=== PATIENT | female | born 2000 | race Two or more races ===

== ENCOUNTER 2018-01-14 10:35 | Day surgery (SDC) | payer MEDICAID ==
--- NOTE | 2018-01-14 11:33 | EDPHY ---
H & P Time Seen by Provider: 01/14/18 11:16 HPI/ROS: CHIEF COMPLAINT: Pelvic pain HISTORY OF PRESENT ILLNESS: Patient complains of lower abdominal and pelvic pain that started yesterday morning. It is constant duration. It was at 1st mild but now moderate to severe. Unable to perform her exercise activities today. 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 It is worse with any kind of movement. Minimal improvement rest. It is primarily located in the mid abdomen into the pelvis and somewhat on the right side. Some nausea but no vomiting. No fever chills. No urinary complaints. No vaginal pain, discharge or bleeding. No trauma or injury. No previous abdominal pathology. She does have some concern for IUD as she talk to her crap game box person about this. Both the crap game box person and the lion trainer at [employer] [facility] [employer] recommended she present to the emergency department. No other associated complaints or modifying factors. REVIEW OF SYSTEMS: Ten systems reviewed and are negative unless otherwise noted in the HPI PCP: [facility] SPECIALISTS: [facility] PAST MEDICAL HISTORY: Asthma PAST SURGICAL HISTORY: No recent surgeries. IUD placed greater than 1 year ago SOCIAL HISTORY: Nonsmoker. [employer] student. Student athlete originally from [place] FAMILY HISTORY: Volleyball noncontributory EXAMINATION General Appearance: Alert, no distress Head: normocephalic, atraumatic Eyes: Pupils equal and round, no conjunctival pallor or injection ENT, Mouth: Mucous membranes moist Neck: Normal inspection, supple, non-tender. Respiratory: Lungs are clear to auscultation No wheezing, rhonchi or crackles Cardiovascular: Regular rate and rhythm. No murmur Gastrointestinal: Abdomen is soft and nondistended. There is mild tenderness in the lower quadrants. Negative McBurney. Negative obturator. No guarding. No rigidity. No tympany. Back: non-tender, no bony abnormalities Neurological: A&O, nonfocal, normal gait Skin: Warm and dry, no rash Extremities: Nontender, no pedal edema Psychiatric: Mood and affect normal DIFFERENTIAL DIAGNOSES: Including but not limited to ovarian cyst, ovarian torsion, IUD irritation, IUD migration, appendicitis, colitis, diverticulitis, ureteral stone, urethritis, ureteritis MDM: 11:20 a.m. Abdominal pelvic pain with patient concern for cyst versus is migration of her IUD. Her abdominal exam is benign with some pain in the lower quadrants. She has no rigidity, tympany or peritonitis. Vital signs are within normal limits. I have ordered ultrasound the appendix and pelvis to rule out torsion and to evaluate for IUD placement. I have ordered laboratory studies. She is in no acute distress at this time. 12:30 p.m. CBC shows mild leukocytosis. Chemistries unremarkable with exception of a positive HCG. I have ordered a quantitative HCG. I have notified the patient of this and discussed the possibilities of a false-positive that we are re- evaluated with a quantitative HCG 12:55 p.m. gas technician is at bedside performing the appendix ultrasound. 1:20 p.m. HCG quantitative has returned at 773. Referral Specialist is aware of this. Proceed with rule out of ectopic . Given that the level is still low, it will be difficult to do this with this evaluation. She will likely need OB consult today in serial hCGs 1:55 p.m. Case discussed with on-call OB physician Dr. Barrientos. He will review the ultrasound images and come evaluate the patient in the emergency department shortly. I have informed the patient of this. She is understandably upset but in no acute distress. 3:[address] Barrientos is in ED to evaluate the patient. He has reviewed the images and suspect that she may need surgical intervention. He has requested a type and screen is currently evaluating the patient 3:35 p.m. Patient has been evaluated by Dr. Barrientos impression in the emergency department. He would like to take the patient to the operating room for laparoscopy due to a possibly ruptured ectopic . He has placed orders for this. He is discussing surgical consent with the patient. Please see his note for further details. I have admitted the patient to observation status. She should be taken to the operating room shortly. She is in no acute distress at this time. SUPERVISION: Patient was independently examined, but I discussed the case with my secondary supervising physician Dr. Meyer. Smoking Status: Never smoked Constitutional: Initial Vital Signs Temperature (C) 98.6 F 01/14/18 10:41 Heart Rate 78 01/14/18 10:41 Respiratory Rate 16 01/14/18 10:41 Blood Pressure 131/69 H 01/14/18 10:41 O2 Sat (%) 94 01/14/18 10:41 O2 Delivery Mode Room Air Allergies/Adverse Reactions: No Known Allergies Allergy (Unverified 01/14/18 10:41) Home Medications: Medication Instructions Recorded NK [No Known Home Meds] 01/14/18 MDM/Departure - MDM Imaging Results: Imaging Impressions Abdomen Ultrasound 01/14/18 11:33 Impression: No indirect evidence for appendicitis. If concern for appendicitis remains, then recommend CT. Pelvic/Renal Ultrasound 01/14/18 11:37 Impression: 1. Suspected ectopic gestational sac medial to the right ovary. Surrounding complex fluid suggestive of ruptured ectopic. 2. No intrauterine gestation. 3. Satisfactory position of intrauterine contraceptive device. Findings and recommendations discussed with Josep NGO Teague at 1:52 PM hour, . Medications Given: Discontinued Medications Sodium Chloride (Ns) 1,000 mls @ 0 mls/hr IV EDNOW ONE; Wide Open PRN Reason: Protocol Stop: 01/14/18 11:35 Last Admin: 01/14/18 11:45 Dose: 1,000 mls - Depart Disposition: [facility] Acute Clinical Impression: Ectopic Qualifiers: Location of ectopic : tubal Intrauterine status: without intrauterine Laterality: right Qualified Code(s): O00.101 - Right tubal without intrauterine Abdominal pain Qualifiers: Abdominal location: right lower quadrant Qualified Code(s): R10.31 - Right lower quadrant pain Condition: Good Referrals: NONE *PRIMARY CARE P,. [Primary Care Provider] - As per Instructions
[2018-01-14] MEDS ORDERED: NS 1,000 ML IV ONE (11:34)
[2018-01-14 11:54] LABS: PLATELET COUNT 308 10^3/uL (150-400)
[2018-01-14] MEDS ORDERED: ceFAZolin 2 GM/SWFI 2 GM/20 ML SYR IVP ONE (15:47)
--- NOTE | 2018-01-14 15:47 | PDCONSULT ---
[employer] Note: ED Consult Note CC: Acute RLQ abdominal pain HPI: Shana is a very pleasant 17 yo who presented to [facility] ED this AM with acute and worsening RLQ abdominal/pelvic pain. She has a Katya IUD which was placed at [facility] approximately 1 yr ago - has been having light and/or irregular periods since placement. No other pregnancies in the past or abdominal surgeries - no other real PMH. She is a piano player at . Noticed this pain initially yesterday AM, mild at first but evolving throughout the day yesterday - was in tears in bed yesterday evening. Tried to goto volleyball practice today and was doubled over in pain. Ultimately brought here with her workplace trainer and assessor. Subjectively reports that her pain is moderate at rest in bed , but can get up to 10/10 at certain times with movement. No F/C, no lightheadedness of dizziness thus far. Mild nausea. She's been having little to no vaginal bleeding. Objective: Temp Pulse Resp BP Pulse Ox 36.5 C 72 15 127/68 H 96 01/14/18 19:08 01/14/18 16:31 01/14/18 18:31 01/14/18 18:31 01/14/18 18:55 O2 (L/minute) 6 Exam: Belly of soft, non-distended, but diffusely tender to light and deep palpation. Lower > upper quadrants and R > L. Minor guarding. Concerning, but not acute abdomen clinically. Labs: HC WBC 11.31 10^3/uL (3.80-9.50) H 01/14/18 11:35 RBC 4.99 10^6/uL (4.18-5.33) 01/14/18 11:35 Hgb 15.4 g/dL (12.6-16.3) 01/14/18 11:35 Hct 44.7 % (38.0-47.0) 01/14/18 11:35 MCV 89.6 fL (81.5-99.8) 01/14/18 11:35 MCH 30.9 pg (27.9-34.1) 01/14/18 11:35 MCHC 34.5 g/dL (32.4-36.7) 01/14/18 11:35 RDW 12.8 % (11.5-15.2) 01/14/18 11:35 Plt Count 308 10^3/uL (150-400) 01/14/18 11:35 MPV 9.5 fL (8.7-11.7) 01/14/18 11:35 Neut % (Auto) 78.4 % (39.3-74.2) H 01/14/18 11:35 Lymph % (Auto) 13.8 % (15.0-45.0) L 01/14/18 11:35 [place] % (Auto) 6.4 % (4.5-13.0) 01/14/18 11:35 Eos % (Auto) 0.6 % (0.6-7.6) 01/14/18 11:35 Baso % (Auto) 0.4 % (0.3-1.7) 01/14/18 11:35 Nucleat RBC Rel Count 0.0 % (0.0-0.2) 01/14/18 11:35 Absolute Neuts (auto) 8.87 10^3/uL (1.70-6.50) H 01/14/18 11:35 Absolute Lymphs (auto) 1.56 10^3/uL (1.00-3.00) 01/14/18 11:35 Absolute Monos (auto) 0.72 10^3/uL (0.30-0.80) 01/14/18 11:35 Absolute Eos (auto) 0.07 10^3/uL (0.03-0.40) 01/14/18 11:35 Absolute Basos (auto) 0.04 10^3/uL (0.02-0.10) 01/14/18 11:35 Absolute Nucleated RBC 0.00 10^3/uL (0-0.01) 01/14/18 11:35 Immature Gran % 0.4 % (0.0-1.1) 01/14/18 11:35 Immature Gran # 0.05 10^3/uL (0.00-0.10) 01/14/18 11:35 Sodium 142 mEq/L (135-145) 01/14/18 11:35 Potassium 4.2 mEq/L (3.5-5.2) 01/14/18 11:35 Chloride 107 mEq/L (97-110) 01/14/18 11:35 Carbon Dioxide 24 mEq/l (22-31) 01/14/18 11:35 Anion Gap 11 mEq/L (8-16) 01/14/18 11:35 BUN 12 mg/dL (7-23) 01/14/18 11:35 Creatinine 0.9 mg/dL (0.6-1.0) 01/14/18 11:35 Estimated GFR > 60 01/14/18 11:35 Glucose 82 mg/dL (70-100) 01/14/18 11:35 Calcium 10.1 mg/dL (8.5-10.4) 01/14/18 11:35 Total Bilirubin 0.8 mg/dL (0.1-1.4) 01/14/18 11:35 Conjugated Bilirubin 0.3 mg/dL (0.0-0.5) 01/14/18 11:35 Unconjugated Bilirubin 0.5 mg/dL (0.0-1.1) 01/14/18 11:35 AST 36 IU/L (14-46) 01/14/18 11:35 ALT 35 IU/L (9-52) 01/14/18 11:35 Alkaline Phosphatase 76 IU/L (38-126) 01/14/18 11:35 Total Protein 7.9 g/dL (6.3-8.2) 01/14/18 11:35 Albumin 4.6 g/dL (3.5-5.0) 01/14/18 11:35 Lipase 118 IU/L (23-300) 01/14/18 11:35 Beta HCG, Qual POSITIVE 01/14/18 11:35 Beta HCG, Quant 773.14 mIU/mL (0.00-4.83) H 01/14/18 11:30 Urine Color YELLOW 01/14/18 11:35 Urine Appearance CLEAR 01/14/18 11:35 Urine pH 5.0 (5.0-7.5) 01/14/18 11:35 Ur Specific [place] 1.011 (1.002-1.030) 01/14/18 11:35 Urine Protein NEGATIVE (NEGATIVE) 01/14/18 11:35 Urine Ketones TRACE (NEGATIVE) H 01/14/18 11:35 Urine Blood 1+ (NEGATIVE) H 01/14/18 11:35 Urine Nitrate NEGATIVE (NEGATIVE) 01/14/18 11:35 Urine Bilirubin NEGATIVE (NEGATIVE) 01/14/18 11:35 Urine Urobilinogen NEGATIVE EU (0.2-1.0) 01/14/18 11:35 Ur Leukocyte Esterase TRACE (NEGATIVE) H 01/14/18 11:35 Urine RBC 1-3 /hpf (0-3) 01/14/18 11:35 Urine WBC 5-10 /hpf (0-3) H 01/14/18 11:35 Ur Epithelial Cells 1+ /lpf (NONE-1+) 01/14/18 11:35 Urine Bacteria TRACE /hpf (NONE SEEN) H 01/14/18 11:35 Urine Mucus TRACE /lpf (NONE-1+) 01/14/18 11:35 Urine Glucose NEGATIVE (NEGATIVE) 01/14/18 11:35 Patient ABO/Rh Cancelled 01/14/18 Unknown Antibody Screen Cancelled 01/14/18 Unknown Imaging: Abdomen Ultrasound 01/14/18 11:33 Impression: No indirect evidence for appendicitis. If concern for appendicitis remains, then recommend CT. Pelvic/Renal Ultrasound 01/14/18 11:37 Impression: 1. Suspected ectopic gestational sac medial to the right ovary. Surrounding complex fluid suggestive of ruptured ectopic. 2. No intrauterine gestation. 3. Satisfactory position of intrauterine contraceptive device. Findings and recommendations discussed with Josep Teague at 1:52 PM hour, . Assessment & Plan: I suspect this is indeed a ruptured ecotpic . Beta of 773 in a pt w IUD (known increased risk for ectopic if does occur), suspicious adnexal mass as well as complex fluid in the pelvis on US, and significant pain. I had a long talk with Shana along with her workplace trainer and assessor in the ER. I explained the clinical situation and reviewed what was on her US. Offered my condolences that this is really a rare event with an IUD that's in the correct position. I did rehabilitation counsellor her that there are options in every situation - we could observe things without treatment, we could think about MTX for medical treatment of presumed ectopic , or we could goto the OR for DxLS and treatment of ectopic if that's what we found. I told her I would not recommend observation given her clinical picture, her pain, and apparent blood in the belly. We discussed the criteria for MTX use in situations like this and I counseled her that if there is really a significant concern for tubal rupture that that's almost always a good reason to pursue surgery. I do think that she is having bleeding into her belly at this time - so I did recommend surgery. She and her support person were in agreement with this. We did talk about risks of that procedure including, but not limited to injury to other organs, heavy bleeding requiring blood transfusion. I offered that we always evaluate the tube in these situations and sometimes we are able to perform salpingostomy and save the tube, while most other times we do need to remove the entire tube to ensure that we remove all tissue and/or don' t leave behind a severely damaged tube raising her risk for future ectopic on that side. She voiced understanding that we might need to take the tube. We did explicitly discuss the implications that that would have on future fertility. Consents signed in the ER and pt moved to preop prior to OR. SANTIAGO
[2018-01-14] MEDS ORDERED: LR 1,000 ML IV ONE (15:49)
[2018-01-14] MEDS ORDERED: BUPIVACAINE/EPI 0.5% 30 ML SDV ONE (15:54)
[2018-01-14] MEDS ORDERED: MIDAZOLAM 2 MG/2 ML VIAL IVP ONE (16:04)
--- NOTE | 2018-01-14 16:04 | PDANEPAE ---
ANE History of Present Illness ruptured ectopic ANE Past Medical History - Cardiovascular History Hx Hypertension: No Hx Arrhythmias: No Hx Chest Pain: No Hx Coronary Artery / Peripheral Vascular Disease: No Hx CHF / Valvular Disease: No Hx Palpitations: No - Pulmonary History Hx COPD: No Hx Asthma/Reactive Airway Disease: Yes Hx Recent Upper Respiratory Infection: No Hx Oxygen in Use at Home: No Hx Sleep Apnea: No - Endocrine History Hx Diabetes: No Hypothyroid: No Hyperthyroid: No Obesity: no ANE Review of Systems Review of systems is: negative Review of Systems: - Exercise capacity Exercise capacity: >=4 METS ANE Patient History - Allergies Allergies/Adverse Reactions: No Known Allergies Allergy (Unverified 01/14/18 10:41) - Home Medications Home medications: home medication list seen and reviewed Home Medications: NK [No Known Home Meds] 01/14/18 [Last Taken Unknown] - NPO status NPO Since - Liquids (Date): 01/14/18 NPO Since - Liquids (Time): 10:00 NPO Since - Solids (Date): 01/13/18 NPO Since - Solids (Time): 07:30 - Anes Hx Anes Hx: no prior problems - Smoking Hx Smoking Status: Never smoked ANE Labs/Vital Signs - Labs Result Diagrams: 01/14/18 11:35 01/14/18 11:35 - Vital Signs Blood Pressure: 139/79 Heart Rate: 72 Respiratory Rate: 16 O2 Sat (%): 97 Height: 172.72 cm Weight: 75.75 kg ANE Physical Exam - Airway Neck exam: FROM Mallampati Score: Class 1 Mouth exam: normal dental/mouth exam - Pulmonary Pulmonary: no respiratory distress - Cardiovascular Cardiovascular: regular rate and rhythym - ASA Status ASA Status: I, E ANE Anesthesia Plan Anesthesia Plan: general endotracheal anesthesia
[2018-01-14] MEDS ORDERED: PROPOFOL 200 MG/20 ML VIAL ONE (16:07)
[2018-01-14] MEDS ORDERED: fentaNYL 250 MCG/5 ML INJ ONE (16:07)
--- NOTE | 2018-01-14 16:09 | PDGENHP ---
History & Physical Chief Complaint: RLQ pain, acute. Suspected ruptured ectopic History of Present Illness: See my full consult note from the ED - Briefly, 17 yo G1 came in with acute RLQ pain. Katya IUD was placed 1 yr ago, HCT positive in the ER at 770 and US showed likely ruptured right ectopic with IUD in correct location within the uterus, no other evidence of intra-uterine gestation. Discussed R/B/A including MTX and/or observation and I recommended OR as there was evidence that this was bleeding due to complex fluid in the pelvis and fairly significant pain for the patient. Pertinent Past, Social, Family History: Non-contributory. Relevant Physical Exam: NAD, RRR, LCTAB, Belly is soft, but tender to light and deep palpation in lower quadrants R>L. Mild rebound, no guarding. Assessment & Plan Assessment: Abdominal pain (Acute) Ectopic (Acute) 17 yo G1 with acute RLQ pain, positive w/ IUD in place, and US suspicious for ruptured ectopic . - To OR for DxLS, possible unilateral salpingectomy, poss salpingostomy. - Weight-based antibiotics, she did have what looked like maybe early UTI in ED as well. - Likely home from PACU w/ fu with me in the office 1-2 weeks. SANTIAGO
[2018-01-14] MEDS ORDERED: LIDOCAINE 2% 100 MG/5 ML SYR ONE (16:12)
[2018-01-14] MEDS ORDERED: KETOROLAC 30 MG/1 ML SDV ONE (16:12)
[2018-01-14] MEDS ORDERED: ROCURONIUM 50 MG/5 ML VIAL ONE ×2 (16:12→16:46)
[2018-01-14] MEDS ORDERED: DEXAMETHASONE 4 MG/ML VIAL ONE (16:12)
[2018-01-14] MEDS ORDERED: ONDANSETRON 4 MG/2 ML VIAL ONE (16:12)
[2018-01-14] MEDS ORDERED: SUGAMMADEX SODIUM 200 MG/2 ML VIAL IVP ONE (16:13)
[2018-01-14] MEDS ORDERED: ALBUTEROL 3 ML DEYVIAL IH PRN (16:52)
[2018-01-14] MEDS ORDERED: NALOXONE HCL 0.4 MG/ML INJ IVP PRN (16:52)
[2018-01-14] MEDS ORDERED: ACETAMINOPHEN 500 MG TAB PO PRN (16:52)
[2018-01-14] MEDS ORDERED: fentaNYL 100 MCG/2 ML INJ IVP PRN (16:52)
[2018-01-14] MEDS ORDERED: OXYCODONE/APAP 5/325 TAB PO PRN (16:52)
[2018-01-14] MEDS ORDERED: ONDANSETRON 4 MG/2 ML VIAL IVP PRN (16:52)
[2018-01-14] MEDS ORDERED: LR 500 ML IV PRN (16:52)
[2018-01-14] MEDS ORDERED: HYDROmorphONE/DILAUDID 2 MG/ML INJ IVP PRN (16:52)
[2018-01-14] MEDS ORDERED: PROMETHAZINE HCL 25 MG/ML INJ IVP PRN (16:52)
--- NOTE | 2018-01-14 16:53 | POSTANESTH ---
Post Anesthetic Evaluation Cardiovascular Status: Normal, Stable Respiratory Status: Normal, Stable Level of Consciousness/Mental Status: Can Participate in Eval Pain Control: Adequate, Prn Tx Ordered Nausea/Vomiting Control: Adequate, Prn Tx Ordered Complications Possibly Related to Anesthesia: None Noted
--- NOTE | 2018-01-14 17:46 | SUROPNOTE ---
[facility] Operative Report - Surgery Date of Operation: 01/14/18 Surgeon: Easton Barrientos Box Feeder: None Anesthesia: GET(General Endotracheal) Pre-op Diagnosis: RLQ pain, acute, suspected ectopic Post-op Diagnosis: Ruptured right ectopic , hemoperitoneum Procedure: Diagnostic laparoscopy, evacuation of hemoperitoneum, right salpingectomy Findings: ~150cc of gross blood initially. Dilated, bleeding right fallopian tube Inf/Abcess present in the surg proc area at time of surgery?: No EBL: 100-500 (150cc hemoperitoneum evacuated at beginning of case - only additional 10cc from additional surgery) Total fluids administered: 800cc Complications: None Specimen(s): Right fallopian tube, with hemoperitoneum/clot, products of conception (suspected) Technique: The patient was brought to the operating room where she was ergonomically positioned in low lithotomy position in Shar stirrups. General anesthesia was established without issue. Weight-based Ancef was given. The arms were tucked at the patients side with care to not generate any pressure points. She was prepped and draped in standard fashion after a time-out was performed. A sponge-stick was placed within the vagina to assist with uterine manipulation. A cisneros catheter was placed under sterile conditions. A 5mm vertical incision was made in the base of the umbilicus after injection of local anesthetic. The anterior abdominal wall was lifted as the Veress needle was carefully inserted into the abdomen at a 45% angle from vertical. Intraabdominal placement was confirmed with hanging drop test and low initial insufflation pressures. Once the abdomen was adequately insufflated with CO2 gas the Veress was removed and a 5mm Optiview non-bladed trocar was introduced into the abdomen without complication under direct visualization with the camera within the trocar. Once inside a brief scan of the abdomen revealed no injuries upon entry, but clearly pelvis filled with blood, approximately 150cc visually. At this point 2 additional 5mm ports were placed in the bilateral lower quadrants after injection of local. Additional pictures were taken of intra-abdominal organs/structures as noted in findings. Pt placed in steep [place]leberg and bowel flipped cephalad. Uterus elelvated displaying clearly abnormal right tube with dilated distal fimbriated end with adherent clot. Indeed approximatley 150-200cc of hemoperitoneum removed initially. I carefully inspected the tube and did feel that the focus of the was in that distal tube and would be not be safe/feasible to perform salpingostomy and salvage functional tube. Decision made to proceed with right salpingectomy. The tube was elevated with atraumatic grasper and Harmonic used to cauterize and amputate that structure from nearby ovary and uterus. The umbilical 5mm port was upsized to 10mm so that we could introduce an Endocatch bag into the abdomen. Specimen placed into the bag which was removed via that umbilical site. To conclude the pelvis was copiously irrigated and complete hemostasis was noted. The 10mm umbilical trocar site was closed with single suture of 0-vicryl laparoscopically using the Newton Tomasen device ultimately with excellent closure of defect. All trocars were removed, gas was allowed to escape the abdomen, and skin incisions closed with single subcuticular stitches of 4-0 monocryl and then covered with Dermabond. The pt was extubated uneventfully and taken to the PACU in stable condition. Lap, needle and instrument counts were announced as correct at the conclusion of the case. I was scrubbed and present for the entire procedure.
[2018-01-14 18:37] VITALS: BP 127/68
[2018-01-14] MEDS ORDERED: HYDROCODONE/APAP 5/325 TAB PO PRN (18:45)
[2018-01-14] MEDS ORDERED: HYDROCODONE/APAP 5/325 TAB ONE (18:46)
== END 2018-01-14 19:10 | disposition home or self-care (01) ==
LOC: UNDOADMOB 15:34
PROVIDERS: ATTEND Emergency Medicine
PROC: 0UT58ZZ Resection of Right Fallopian Tube, Via Natural or Artificial Opening Endoscopic (ICD-10-PCS; principal; 2018-01-14 16:30)
DX: O00.90 Unspecified ectopic pregnancy without intrauterine pregnancy (principal)
CPT/HCPCS: 96374; J0690; J1100; J1885; J2001; J2250; J2405; J2704; J3010